=== PATIENT | female | born 1990 | race American Indian/Alaskan Native ===

== ENCOUNTER 2019-02-17 10:13 | Emergency (ER) | payer OTHER ==
[2019-02-17 10:41] VITALS: BP 100/68
[2019-02-17 11:20] LABS: Bilirubin,Urine NEG (Negative); Blood,Urine NEG (Negative); Color,Urine Yellow (Yellow); Mucus,Urine 1+ /HPF; Urobilinogen,Urine < 2.0 mg/dL (<2.0)
[2019-02-17 11:27] LABS: HCG Qualitative,Urine Positive (Negative)
[2019-02-17] MEDS ORDERED: METOCLOPRAMIDE 10 MG/2 ML INJ IV ONE (11:41)
[2019-02-17] MEDS ORDERED: D5W/0.9% NACL 1,000 ML IV SCH (12:00)
--- NOTE | 2019-02-17 13:58 | Emergency Department Report ---
ED N/V/D HPI - General Chief complaint: Nausea/Vomiting/Diarrhea Stated complaint: VOMITING/WEAKNESS Time Seen by Provider: 02/17/19 11:29 Source: patient Mode of arrival: Ambulatory Limitations: No Limitations - History of Present Illness Initial comments: Patient is a 28-year-old female who is presenting with 6 days of nausea vomiting. Patient feels that she can't keep anything down. Patient has some mild weakness especially when standing. She denies abdominal pain diarrhea fevers or chills. Patient to be test several days ago which was positive. She has no vaginal bleeding or discharge or dysuria. - Related Data Previous Rx's Medication Instructions Recorded Last Taken Type Metoclopramide [Reglan] 10 mg PO TID PRN #12 tab 02/17/19 Unknown Rx Allergies Allergy/AdvReac Type Severity Reaction Status Date / Time No Known Allergies Allergy Verified 02/17/19 11:49 ED Review of Systems ROS: Stated complaint: VOMITING/WEAKNESS Other details as noted in HPI Comment: All other systems reviewed and negative ED Past Medical Hx - Past Medical History Previous Medical History?: No - Surgical History Past Surgical History?: No - Social History Smoking Status: Never Smoker Substance Use Type: Marijuana - Medications Home Medications: Home Medications Medication Instructions Recorded Confirmed Last Taken Type Metoclopramide [Reglan] 10 mg PO TID PRN #12 tab 02/17/19 Unknown Rx ED Physical Exam - General Limitations: No Limitations General appearance: alert, in no apparent distress - Head Head exam: Present: atraumatic, normocephalic - Eye Eye exam: Present: normal appearance - ENT ENT exam: Present: mucous membranes moist - Neck Neck exam: Present: normal inspection - Respiratory Respiratory exam: Present: normal lung sounds bilaterally. Absent: respiratory distress, wheezes, rales, rhonchi - Cardiovascular Cardiovascular Exam: Present: regular rate, normal rhythm. Absent: systolic murmur, diastolic murmur, rubs, gallop - GI/Abdominal GI/Abdominal exam: Present: soft, normal bowel sounds. Absent: distended, tenderness, guarding, rebound - Extremities Exam Extremities exam: Present: normal inspection - Back Exam Back exam: Present: normal inspection - Neurological Exam Neurological exam: Present: alert, oriented X3 - Psychiatric Psychiatric exam: Present: normal affect, normal mood - Skin Skin exam: Present: warm, dry, intact, normal color. Absent: rash ED Course Vital Signs 02/17/19 02/17/19 10:20 10:56 Temperature 98.2 F 98.2 F Pulse Rate 81 81 Respiratory 16 18 Rate Blood Pressure 100/68 Blood Pressure 100/68 [Right] O2 Sat by Pulse 99 99 Oximetry ED Medical Decision Making - Lab Data Lab Results 02/17/19 Range/Units Unknown Urine Color Yellow (Yellow) Urine Turbidity Slightly-cloudy (Clear) Urine pH 8.0 H (5.0-7.0) Ur Specific Ault 1.019 (1.003-1.030) Urine Protein 30 mg/dl (Negative) mg/dL Urine Glucose (UA) Neg (Negative) mg/dL Urine Ketones 20 (Negative) mg/dL Urine Blood Neg (Negative) Urine Nitrite Neg (Negative) Urine Bilirubin Neg (Negative) Urine Urobilinogen < 2.0 (<2.0) mg/dL Ur Leukocyte Esterase Neg (Negative) Urine WBC (Auto) 2.0 (0.0-6.0) /HPF Urine RBC (Auto) 1.0 (0.0-6.0) /HPF U Epithel Cells (Auto) 13.0 (0-13.0) /HPF Urine Mucus 1+ /HPF Urine HCG, Qual Positive A (Negative) - Medical Decision Making He was hydrated with normal saline with D5. This was given 60 ketones seen on her urinalysis. The patient also given antiemetics and will be discharged home. Critical care attestation.: If time is entered above; I have spent that time in minutes in the direct care of this critically ill patient, excluding procedure time. ED Disposition Clinical Impression: Hyperemesis gravidarum, Ketonuria Disposition: - TO HOME OR SELFCARE Is pt being admited?: No Does the pt Need Aspirin: No Condition: Stable Instructions: Hyperemesis Gravidarum (ED) Referrals: [facility] [Provider Group] - 3-5 Days Time of Disposition: 13:57
== END 2019-02-17 14:15 | disposition home or self-care (01) ==
LOC: ED 10:13
DX: O21.9 Vomiting of pregnancy, unspecified (principal); R82.4 Acetonuria; F12.10 Cannabis abuse, uncomplicated; Z79.899 Other long term (current) drug therapy; Z3A.01 Less than 8 weeks gestation of pregnancy
CPT/HCPCS: 81001; 81025; 96361; 96374; 99283; J2765; J7042

== ENCOUNTER 2019-02-22 15:38 | Emergency (ER) | payer OTHER ==
[2019-02-22] MEDS ORDERED: ACETAMINOPHEN 325 MG TAB PO ONE (16:13)
[2019-02-22] MEDS ORDERED: ACETAMINOPHEN 325 MG TAB ONE (16:13)
--- NOTE | 2019-02-22 16:13 | Emergency Department Report ---
Blank Doc - Documentation Documentation: 28-year-old female that presents with sore throat and cough with fever and chi lls. Stated is about 8 weeks . This initial assessment/diagnostic orders/clinical plan/treatment(s) is/are subject to change based on patient's health status, clinical progression and re-assessment by fellow clinical providers in the ED. Further treatment and workup at subsequent clinical providers discretion. Patient/guardians urged not to elope from the ED as their condition may be serious if not clinically assessed and managed. Initial orders include: 1- Patient sent to [facility] for further evaluation and treatment 2- Strep swabs 3- Tylenol
--- NOTE | 2019-02-22 19:37 | Emergency Department Report ---
- General Chief Complaint: Upper Respiratory Infection Stated Complaint: 8WKS PREG/FEVER/COUGH/HEADACHE Time Seen by Provider: 02/22/19 16:11 Source: patient Mode of arrival: Ambulatory Limitations: No Limitations - History of Present Illness Initial Comments: The patient is a 28-year-old Afro-[place] female with no past medical history and who presents to the ED with complaint of acute onset persistent nasal and sinus congestion, frontal sinus pressure and headache, dry cough, sore throat and intermittent fever of up to 101F for the last 4 days. Patient states that her symptoms have worsened in the last 2 days. Patient states that her fever was 102F prior to arrival in the ED. Patient said that she is at this time. Patient denies dizziness, nausea, vomiting, abdominal pain, vaginal discharge, vaginal bleeding, syncope, dysuria, urinary frequency and urgency, chest pain or shortness of breath. MD Complaint: fever, cough, sore throat, rhinorrhea, nasal congestion, sinus pain -: Sudden, days(s) (4) Severity: moderate Severity scale (0 -10): 4 Quality: dull, aching Consistency: constant Improves With: nothing Worsens With: nothing Context: sick contacts Associated Symptoms: denies other symptoms, fever, chills, myalgias, rhinorrhea, nasal congestion, sore throat, cough. denies: diaphoresis, headache, chest pain, shortness of breath, abdominal pain, nausea, diarrhea, dysuria, rash, weight loss, epistaxis, ear pain, other - Related Data Previous Rx's Medication Instructions Recorded Last Taken Type Metoclopramide [Reglan] 10 mg PO TID PRN #12 tab 02/17/19 Unknown Rx Amoxicillin [Trimox CAP] 500 mg PO Q8H #30 capsule 02/22/19 Unknown Rx Allergies Allergy/AdvReac Type Severity Reaction Status Date / Time No Known Allergies Allergy Verified 02/17/19 11:49 ED Review of Systems ROS: Stated complaint: 8WKS PREG/FEVER/COUGH/HEADACHE Other details as noted in HPI Constitutional: denies: chills, fever Eyes: denies: eye pain, eye discharge, vision change ENT: throat pain, congestion. denies: ear pain Respiratory: cough. denies: shortness of breath, wheezing Cardiovascular: denies: chest pain, palpitations Endocrine: no symptoms reported Gastrointestinal: denies: abdominal pain, nausea, diarrhea Genitourinary: denies: urgency, dysuria, discharge Musculoskeletal: denies: back pain, joint swelling, arthralgia Skin: denies: rash, lesions Neurological: denies: headache, weakness, paresthesias Psychiatric: denies: anxiety, depression Hematological/Lymphatic: denies: easy bleeding, easy bruising ED Past Medical Hx - Past Medical History Previous Medical History?: Yes Additional medical history: anemia - Surgical History Past Surgical History?: No - Social History Smoking Status: Never Smoker Substance Use Type: None - Medications Home Medications: Home Medications Medication Instructions Recorded Confirmed Last Taken Type Metoclopramide [Reglan] 10 mg PO TID PRN #12 tab 02/17/19 Unknown Rx Amoxicillin [Trimox CAP] 500 mg PO Q8H #30 capsule 02/22/19 Unknown Rx ED Physical Exam - General Limitations: No Limitations General appearance: alert, in no apparent distress - Head Head exam: Present: atraumatic, normocephalic - Eye Eye exam: Present: normal appearance, PERRL, EOMI - ENT ENT exam: Present: mucous membranes moist, TM's normal bilaterally, other (erythematous oropharyngeal area with white exudates; grossly congested nasal passages) - Neck Neck exam: Present: normal inspection, full ROM. Absent: tenderness, lymphadenopathy - Respiratory Respiratory exam: Present: normal lung sounds bilaterally. Absent: respiratory distress, wheezes, rales, rhonchi, chest wall tenderness, decreased breath sounds, prolonged expiratory - Cardiovascular Cardiovascular Exam: Present: regular rate, normal rhythm, normal heart sounds. Absent: systolic murmur, diastolic murmur, rubs, gallop - GI/Abdominal GI/Abdominal exam: Present: soft, normal bowel sounds. Absent: tenderness - Extremities Exam Extremities exam: Present: normal inspection, full ROM, normal capillary refill - Back Exam Back exam: Present: normal inspection, full ROM. Absent: tenderness, CVA tenderness (R), muscle spasm, paraspinal tenderness - Neurological Exam Neurological exam: Present: alert, oriented X3, CN II-XII intact, normal gait, reflexes normal - Psychiatric Psychiatric exam: Present: normal affect, normal mood - Skin Skin exam: Present: warm, dry, intact, normal color. Absent: rash ED Course Vital Signs 02/22/19 15:49 Temperature 101.2 F H Pulse Rate 99 H Respiratory 18 Rate Blood Pressure 113/69 O2 Sat by Pulse 99 Oximetry - Reevaluation(s) Reevaluation #1: 02/22/19 19:42 This is a 28-year-old -[place] female who presented to the ED with sore throat, nasal and sinus congestion and fever for 4 days. In triage, patient is febrile but in no acute distress. Rapid strep test is negative in the ED. Patient was treated for fever in the ED, and felt better. Patient was discharged home on antibiotics amoxicillin and advised to continue taking Tylenol as needed for fever and pain. Patient was advised follow-up with her primary care physician or [facility] physician in 7-10 days for reevaluation or return to the ED immediately if symptoms get worse. ED Medical Decision Making - Medical Decision Making This is a 28-year-old -[place] female who presented to the ED with sore throat, nasal and sinus congestion and fever for 4 days. In triage, patient is febrile but in no acute distress. Rapid strep test is negative in the ED. Patient was treated for fever in the ED, and felt better. Patient was discharged home on antibiotics amoxicillin and advised to continue taking Tylenol as needed for fever and pain. Patient was advised follow-up with her primary care physician or [facility] physician in 7-10 days for reevaluation or return to the ED immediately if symptoms get worse. - Differential Diagnosis strep pharyngitis; acuet URI; Bronchitis Critical care attestation.: If time is entered above; I have spent that time in minutes in the direct care of this critically ill patient, excluding procedure time. ED Disposition Clinical Impression: Acute upper respiratory infection Acute bronchitis Qualifiers: Bronchitis organism: other organism Qualified Code(s): J20.8 - Acute bronchitis due to other specified organisms Acute pharyngitis Qualifiers: Pharyngitis/tonsillitis etiology: unspecified etiology Qualified Code(s): J02.9 - Acute pharyngitis, unspecified Disposition: - TO HOME OR SELFCARE Is pt being admited?: No Does the pt Need Aspirin: No Condition: Stable Instructions: Acute Bronchitis (ED), Pharyngitis (ED), Upper Respiratory Infection (ED), Fever in Adults (ED) Additional Instructions: Take medication with food, drink plenty of fluids and follow-up with your primary care physician or the [facility] physician in 7-10 days for reevaluation. Return to the ED immediately if symptoms get worse. Prescriptions: Amoxicillin [Trimox CAP] 500 mg PO Q8H #30 capsule Referrals: CORTNEY GIMENEZ MD [Staff Physician] - 3-5 Days Forms: Work/School Release Form(ED) Time of Disposition: 19:36 Print Language: MONGOLIAN
[2019-02-22 19:54] VITALS: BP 109/67
== END 2019-02-22 20:00 | disposition home or self-care (01) ==
LOC: ED 15:38
DX: O99.511 Diseases of the respiratory system complicating pregnancy, first trimester (principal); J20.9 Acute bronchitis, unspecified; J06.9 Acute upper respiratory infection, unspecified; O99.011 Anemia complicating pregnancy, first trimester; Z79.899 Other long term (current) drug therapy; Z3A.08 8 weeks gestation of pregnancy
CPT/HCPCS: 87116; 87430; 99283